=== PATIENT | male | born 1940 | race Caucasian/White ===

== ENCOUNTER 2020-09-30 09:20 | Observation (INO) | payer MEDICARE ==
[~2020-09-30] VITALS: Ht 180.3 cm; Wt 78.9 kg
[~2020-09-30 09:20] MED LIST: ASPI-496 PO; LOVA40TA2 PO; METO25TA91 PO; PRAS10TA4 PO
--- NOTE | 2020-09-30 09:57 | NUR ---
[facility] [employer] at bedside for initial assessment and eval.
--- NOTE | 2020-09-30 10:04 | NUR ---
pt presents to ed with c/o of feeling short of breath and "winded" after they were doing work around the house/yard this morning. pt denies current sob or cp. pt a&o, resps even and unlabored, vss, nadn.
[2020-09-30 10:14] LABS: BASOPHILS % (AUTO) 1 % (0-1); EOSINOPHILS % (AUTO) 2 % (1-7); LYMPHOCYTES % (AUTO) 24 % (22-44); MEAN CORPUSCULAR HGB CONC 34.2 g/dL (33.2-36.2); MEAN PLATELET VOLUME 8.2 fL (7.4-10.4); MONOCYTES % (AUTO) 11 % (2-9); NEUTROPHILS % (AUTO) 62 % (42-75); PLATELET COUNT 184 x10^3/uL (130-400); RED CELL DISTRIBUTION WIDTH 13.7 % (9.4-14.8)
[2020-09-30 10:27] LABS: ALANINE AMINOTRANSFERASE 23 U/L (12-78); ALBUMIN 3.9 g/dL (3.4-5.0); ANION GAP 8 mmol/L (5-15); CALCIUM 9.1 mg/dL (8.5-10.1); CHLORIDE 107 mmol/L (98-107); CREATININE 0.95 mg/dL (0.7-1.3)
[2020-09-30 10:31] LABS: ALKALINE PHOSPHATASE 100 U/L (45-117); BILIRUBIN,TOTAL 0.8 mg/dL (0.2-1.0); TOTAL PROTEIN 7.5 g/dL (6.4-8.2); TROPONIN I 0.017 ng/mL (0.000-0.045)
[2020-09-30] MEDS: SODIUM CHLORIDE 0.9% 1,000 ML IV SCH ×2 (11:00→19:00)
--- NOTE | 2020-09-30 11:29 | NUR ---
pt resting in bed, a&o, resps even and unlabored, vss, nadn. at bedside, call light in reach. awaiting md to see to discuss poc.
--- NOTE | 2020-09-30 11:56 | NUR ---
hospitalist at bedside to discuss poc
--- NOTE | 2020-09-30 12:59 | NUR ---
REPORT GIVEN TO RECEIVING GUS JUNIOR
[2020-09-30] MEDS ORDERED: ASPIRIN 81 MG TABLET EC PO SCH (13:00)
[2020-09-30] MEDS ORDERED: HOLD MEDICATION MC ONE (13:00)
[2020-09-30] MEDS ORDERED: METOPROLOL SUCCINATE 25 MG TAB.ER.24H PO SCH (13:00)
[2020-09-30] MEDS ORDERED: FENTANYL PF 100 MCG/2ML ONE (13:01)
[2020-09-30] MEDS ORDERED: MIDAZOLAM 1 MG/ML, 5ML ONE (13:01)
[2020-09-30] MEDS ORDERED: HEPARIN 1,000 UNITS/ML, 10ML ONE (13:02)
[2020-09-30] MEDS ORDERED: VERAPAMIL 2.5 MG/ML, 2ML ONE (13:02)
[2020-09-30] MEDS ORDERED: BIVALIRUDIN 250 MG ONE (13:02)
[2020-09-30] MEDS ORDERED: LIDOCAINE-MPF 1%, 5ML ONE (13:02)
[2020-09-30 13:12] VITALS: BP 126/84
--- NOTE | 2020-09-30 13:23 | NUR ---
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 PT DENIES CHEST PAIN, DENIES DYSPNEA. PT HAD EXTENSIVE DISCUSSION WITH WILDLIFE CONSERVATION OFFICER WHO RECOMMENDS ANGIOGRAM TO RULE OUT CARDIAC ETIOLOGY OF SX. PT AGREEABLE TO PLAN FOR ANGIOGRAM, STATES HE HAS BEEN NPO ALL DAY. PT TAKEN TO MEDICAL OFFICE SECRETARY AT THIS TIME BY MEDICAL OFFICE SECRETARY RN'S, ACCOMPANYING.
[2020-09-30] MEDS ORDERED: ACETAMINOPHEN 325 MG TABLET PO PRN (14:00)
[2020-09-30] MEDS ORDERED: HYDROcodone/APAP 5/325 TABLET PO PRN (14:00)
[2020-09-30 14:33] LABS: INTERNATIONAL NORMALIZED RATIO 1.03 (0.93-1.1)
[2020-09-30] MEDS ORDERED: LOVASTATIN 40 MG TABLET PO SCH (21:00)
== END 2020-09-30 19:42 | disposition home or self-care (01) ==
LOC: ED 10:21 → INTOOBSV 11:22 → EDIP 11:22 → 5SO 14:39
PROVIDERS: ADMIT Family Medicine; ATTEND Family Medicine
DX: I25.10 Atherosclerotic heart disease of native coronary artery without angina pectoris (principal); R06.00 Dyspnea, unspecified; I51.89 Other ill-defined heart diseases; I10 Essential (primary) hypertension; R91.1 Solitary pulmonary nodule; E78.5 Hyperlipidemia, unspecified; E11.9 Type 2 diabetes mellitus without complications; I25.2 Old myocardial infarction; Z85.46 Personal history of malignant neoplasm of prostate; Z79.82 Long term (current) use of aspirin; Z79.899 Other long term (current) drug therapy
CPT/HCPCS: 36415; 71045; 71250; 80053; 83036; 83735; 84100; 84484; 85025; 85610; 93005; 93458; 99156; 99285; C1769; C1894; G0378; J1644; J2250; J3010; Q9967; J0583